=== PATIENT | female | born 1985 | race Caucasian/White ===

== ENCOUNTER 2024-09-09 17:37 | Emergency (ER) | payer OTHER ==
[~2024-09-09] VITALS: Ht 172.7 cm; Wt 115.8 kg
[2024-09-09] MEDS ORDERED: DEPO-SUBQ104 MG/0.6 SUB-Q (18:00)
[2024-09-09] MEDS ORDERED: KETOROLAC TROMETHAMINE 60 MG/2 ML VIAL IM ONE (20:45)
[2024-09-09] MEDS ORDERED: diazePAM 10 MG/2 ML SYR IM ONE (20:45)
[2024-09-09] MEDS ORDERED: CYCLOBENZAPRINE10 MG PO (23:29)
[2024-09-09 23:44] VITALS: BP 116/68
[2024-09-09] MEDS ORDERED: methylPREDNISolone 4 MG HOME.PACK PO ONE (23:45)
[2024-09-09] MEDS ORDERED: CYCLOBENZAPRINE HCL 10 MG HOME.PACK PO ONE (23:45)
== END 2024-09-09 23:44 | disposition home or self-care (01) ==
LOC: ED 17:37
DX: M51.369 Other intervertebral disc degeneration, lumbar region without mention of lumbar back pain or lower extremity pain (principal)
CPT/HCPCS: 36415; 72131; 84702; 84703; 96372; 99284-25; J1885

== ENCOUNTER 2025-03-31 22:25 | Emergency (ER) | payer OTHER ==
[~2025-03-31] VITALS: Ht 172.7 cm; Wt 125.0 kg
[~2025-03-31 22:25] MED LIST: CYCLOBENZAPRINE10 MG PO; DEPO-SUBQ104 MG/0.6 SUB-Q
[2025-03-31] MEDS ORDERED: AMOX TR-K CLV1 EAC1 PO (22:45)
[2025-03-31] MEDS ORDERED: TRAMADOL HCL50 MG PO (22:45)
[2025-03-31] MEDS ORDERED: HYDROCODONE BIT/ACETAMINOPHEN 5/325 MG 1 TAB HOME.PACK PO ONE (23:00)
[2025-03-31] MEDS ORDERED: AMOXICILLIN/CLAVULANATE K 875 MG HOME.PACK PO ONE (23:00)
[2025-03-31 23:03] VITALS: BP 138/91
== END 2025-03-31 23:04 | disposition home or self-care (01) ==
LOC: ED 22:25
DX: K08.89 Other specified disorders of teeth and supporting structures (principal)
CPT/HCPCS: 99282; A9270